=== PATIENT | male | born 1965 | race Caucasian/White ===

== ENCOUNTER 2017-10-29 09:33 | Day surgery (SDC) | payer OTHER ==
[2017-10-29] MEDS: NS 1,000 ML IV (09:45)
[2017-10-29] MEDS ORDERED: LIDOCAINE 2% INJ 100 MG/5 ML SDV (FOR ANES.) As Ordered (10:51)
[2017-10-29] MEDS ORDERED: PROPOFOL 200 MG/20 ML VIAL As Ordered ×2 (10:51→11:02)
== END 2017-10-29 11:35 | disposition home or self-care (01) ==
LOC: M OPP 09:33
DX: Z12.11 Encounter for screening for malignant neoplasm of colon (principal); I10 Essential (primary) hypertension; E78.5 Hyperlipidemia, unspecified; M54.9 Dorsalgia, unspecified; G47.30 Sleep apnea, unspecified; M10.9 Gout, unspecified; Z79.899 Other long term (current) drug therapy; Z80.3 Family history of malignant neoplasm of breast; Z83.3 Family history of diabetes mellitus; Z82.49 Family history of ischemic heart disease and other diseases of the circulatory system
CPT/HCPCS: 45378

== ENCOUNTER → 2018-11-22 | Outpatient (REF) | payer OTHER ==
[~2018-11-22] MED LIST: AMLO5TAB6 PO; CELE1CAP9 PO; CIAL20TA PO; COQ1100C PO; FISH5CAP PO; HYDR12CA PO; LISI40TA PO; MULT1TAB10 PO; OMEP40CA2 PO; PRAV40TA2 PO; TRAM50TA2 PO; ZYLO300T6 PO
== END ==
LOC: M LAB REF 16:44
PROVIDERS: ATTEND Family Medicine
DX: M10.9 Gout, unspecified (principal)

== ENCOUNTER → 2021-05-09 | Outpatient (REF) | payer OTHER ==
[~2021-05-09] MED LIST changes: +AMLO1TAB24 PO; -AMLO5TAB6 PO; -LISI40TA PO; +LISI40TA4 PO; -OMEP40CA2 PO; +OMEP40CA4 PO
== END ==
LOC: M LAB REF 12:02
PROVIDERS: ATTEND Family Medicine
DX: M10.9 Gout, unspecified (principal)

== ENCOUNTER → 2021-08-22 | Outpatient (CLI) | payer OTHER | LOC: M WUC 10:12 | PROVIDERS: ATTEND Internal Medicine | DX: M25.531 Pain in right wrist (principal); M19.041 Primary osteoarthritis, right hand ==

== ENCOUNTER → 2024-03-08 | Outpatient (CLI) | payer OTHER ==
[~2024-03-08] MED LIST changes: +CELE0.09 PO; -CELE1CAP9 PO
== END ==
LOC: M RAD 07:58
PROVIDERS: ATTEND Family Medicine
DX: K75.81 Nonalcoholic steatohepatitis (NASH) (principal)